=== PATIENT | male | born 1980 ===

== ENCOUNTER 2020-02-28 10:52 | Emergency (ER) | payer OTHER ==
[~2020-02-28] VITALS: Ht 167.6 cm; Wt 68.0 kg
[2020-02-28] MEDS ORDERED: BACTRIM DS TAB1 EACH PO (11:40)
[2020-02-28] MEDS ORDERED: KETO10TA2 PO (11:40)
[2020-02-28] MEDS ORDERED: MUPIROCIN1 G1 TOP (11:40)
== END 2020-02-28 11:47 | disposition home or self-care (01) ==
LOC: ER 10:52
DX: L03.115 Cellulitis of right lower limb (principal)